=== PATIENT | female | born 1995 | race Native Hawaiian/Other Pacific Islander ===

== ENCOUNTER 2017-07-10 18:53 | Emergency (ER) | payer MEDICAID | END 2017-07-10 21:20 | disposition left against medical advice (07) | LOC: ED 18:53 | DX: J02.9 Acute pharyngitis, unspecified (principal); Z53.21 Procedure and treatment not carried out due to patient leaving prior to being seen by health care provider ==

== ENCOUNTER 2018-08-30 13:06 | Emergency (ER) | payer MEDICAID, OTHER ==
--- NOTE | 2018-08-30 13:48 | Emergency Department Report ---
Blank Doc - Documentation Documentation: This is a 23-year-old female that presents with left sided pelvic pain and raj sea vomiting. This initial assessment/diagnostic orders/clinical plan/treatment(s) is/are subject to change based on patient's health status, clinical progression and re- assessment by fellow clinical providers in the ED. Further treatment and workup at subsequent clinical providers discretion. Patient/guardians urged not to elope from the ED as their condition may be serious if not clinically assessed and managed. Initial orders include: 1- Patient sent to [facility] for further evaluation and treatment 2- labs 3- UA
[2018-08-30 14:09] LABS: Hematocrit 42.6 % (30.3-42.9); Hemoglobin 14.6 gm/dl (10.1-14.3); Mean Corpuscular HGB Conc 34 % (30-34); Mean Corpuscular Volume 89 fl (79-97); Platelet Count 271 K/mm3 (140-440); Red Blood Count 4.81 M/mm3 (3.65-5.03); Red Cell Distribution Width 12.6 % (13.2-15.2)
[2018-08-30 14:28] LABS: Alanine Aminotransferase 27 units/L (7-56); BUN/Creatinine Ratio 9; Bilirubin,Direct < 0.2 mg/dL (0-0.2); Blood Urea Nitrogen 7 mg/dL (7-17); Calcium 9.1 mg/dL (8.4-10.2); Hemolysis Index 10
[2018-08-30 15:38] LABS: Basophils % (Manual) 0 % (0.0-1.8); Eosinophils % (Manual) 0 % (0.0-4.3); Total Cells Counted 100
[2018-08-30 15:39] LABS: RBC Morphology Normal
[2018-08-30 15:40] LABS: Bacteria,Urine 2+ /HPF (Negative); Bilirubin,Urine NEG (Negative); Blood,Urine MOD (Negative); Color,Urine Amber (Yellow); Mucus,Urine 1+ /HPF
[2018-08-30 15:42] LABS: WBC,Urine > 182.0 /HPF (0.0-6.0)
[2018-08-30 15:44] LABS: HCG Qualitative,Urine Negative (Negative)
--- NOTE | 2018-08-30 16:06 | Emergency Department Report ---
ED Abdominal Pain HPI - General Chief Complaint: Abdominal Pain Stated Complaint: STOMACH PAIN/NAUSEA/FEVER Time Seen by Provider: 08/30/18 13:47 Source: patient Mode of arrival: Ambulatory Limitations: No Limitations - History of Present Illness Initial Comments: This is a 23-year-old after [place] female that presents with left-sided abdominal pain and nausea and vomiting for one week. Patient also complains of a headache. States she had a bowel movement yesterday that was hard green balls. Last menstrual period was 08/22/2018 and 0. She denies vaginal bleeding, vaginal discharge, recent travel, and unusual foods. MD Complaint: abdominal pain Onset/Timin -: week(s) Location: L flank Radiation: none Migration to: no migration Severity scale (0 -10): 7 Quality: cramping Consistency: intermittent Improves With: nothing Worsens With: nothing Associated Symptoms: nausea, vomiting, chills. denies: diarrhea, fever, dysuria, hematemesis, hematochezia, melena, hematuria, anorexia, syncope Treatments Prior to Arrival: NSAIDs - Related Data LMP Date: 08/22/18 Previous Rx's Medication Instructions Recorded Last Taken Type Nitrofurantoin [place]/M-Cryst 100 mg PO Q12HR #10 capsule 10/25/15 Unknown Rx [Macrobid CAP] traMADol [Ultram] 50 mg PO Q6HR PRN #20 tablet 10/25/15 Unknown Rx Ciprofloxacin HCl [Cipro] 500 mg PO BID #20 tablet 08/30/18 Unknown Rx Ibuprofen [Motrin 800 MG tab] 800 mg PO Q8HR PRN #20 tablet 08/30/18 Unknown Rx Ondansetron [Zofran Odt] 4 mg PO Q8HR PRN #12 tab.rapdis 08/30/18 Unknown Rx Tramadol HCl [Ultram] 50 mg PO Q6H PRN #12 tablet 08/30/18 Unknown Rx Allergies Allergy/AdvReac Type Severity Reaction Status Date / Time No Known Allergies Allergy Verified 10/25/15 03:59 ED Review of Systems ROS: Stated complaint: STOMACH PAIN/NAUSEA/FEVER Other details as noted in HPI Constitutional: chills, fever Respiratory: denies: cough, shortness of breath, wheezing Cardiovascular: denies: chest pain, palpitations Gastrointestinal: abdominal pain, nausea, vomiting. denies: diarrhea Genitourinary: denies: urgency, dysuria, discharge Musculoskeletal: denies: back pain, joint swelling, arthralgia Skin: denies: rash, lesions Neurological: denies: headache, weakness, paresthesias Psychiatric: denies: anxiety, depression ED Past Medical Hx - Past Medical History Additional medical history: chronic back pain - Surgical History Past Surgical History?: No - Social History Smoking Status: Current Every Day Smoker Substance Use Type: None - Medications Home Medications: Home Medications Medication Instructions Recorded Confirmed Last Taken Type Nitrofurantoin [place]/M-Cryst 100 mg PO Q12HR #10 capsule 10/25/15 Unknown Rx [Macrobid CAP] traMADol [Ultram] 50 mg PO Q6HR PRN #20 tablet 10/25/15 Unknown Rx Ciprofloxacin HCl [Cipro] 500 mg PO BID #20 tablet 08/30/18 Unknown Rx Ibuprofen [Motrin 800 MG tab] 800 mg PO Q8HR PRN #20 tablet 08/30/18 Unknown Rx Ondansetron [Zofran Odt] 4 mg PO Q8HR PRN #12 tab.rapdis 08/30/18 Unknown Rx Tramadol HCl [Ultram] 50 mg PO Q6H PRN #12 tablet 08/30/18 Unknown Rx ED Physical Exam - General Limitations: No Limitations General appearance: alert, in no apparent distress - Respiratory Respiratory exam: Present: normal lung sounds bilaterally. Absent: respiratory distress - Cardiovascular Cardiovascular Exam: Present: regular rate, normal rhythm. Absent: systolic murmur, diastolic murmur, rubs, gallop - GI/Abdominal GI/Abdominal exam: Present: soft, tenderness (suprapubic), normal bowel sounds. Absent: distended, guarding, rebound, rigid, organomegaly, mass, bruit, pulsatile mass - Back Exam Back exam: Present: full ROM, CVA tenderness (R), CVA tenderness (L). Absent: muscle spasm, paraspinal tenderness, vertebral tenderness, rash noted - Neurological Exam Neurological exam: Present: alert, oriented X3, normal gait - Psychiatric Psychiatric exam: Present: normal affect, normal mood - Skin Skin exam: Present: warm, dry, intact, normal color. Absent: rash ED Course Vital Signs 08/30/18 08/30/18 08/30/18 13:49 16:22 16:30 Temperature 100.1 F H Pulse Rate 110 H Respiratory 20 18 Rate Blood Pressure 124/78 113/66 O2 Sat by Pulse 99 100 Oximetry 08/30/18 16:45 Temperature Pulse Rate Respiratory Rate Blood Pressure 105/60 O2 Sat by Pulse 100 Oximetry ED Medical Decision Making - Lab Data Result diagrams: 08/30/18 13:57 08/30/18 13:57 Lab Results 08/30/18 08/30/18 08/30/18 Range/Units 13:57 13:57 14:15 WBC 15.6 H (4.5-11.0) K/mm3 RBC 4.81 (3.65-5.03) M/mm3 Hgb 14.6 H (10.1-14.3) gm/dl Hct 42.6 (30.3-42.9) % MCV 89 (79-97) fl MCH 30 (28-32) pg MCHC 34 (30-34) % RDW 12.6 L (13.2-15.2) % Plt Count 271 (140-440) K/mm3 Add Manual Diff Complete Total Counted 100 Seg Neuts % (Manual) 85.0 H (40.0-70.0) % Band Neutrophils % 0 % Lymphocytes % (Manual) 8.0 L (13.4-35.0) % Reactive Lymphs % (Man) 0 % Monocytes % (Manual) 7.0 (0.0-7.3) % Eosinophils % (Manual) 0 (0.0-4.3) % Basophils % (Manual) 0 (0.0-1.8) % Metamyelocytes % 0 % Myelocytes % 0 % Promyelocytes % 0 % Blast Cells % 0 % Nucleated RBC % Not Reportable Seg Neutrophils # Man 13.3 H (1.8-7.7) K/mm3 Band Neutrophils # 0.0 K/mm3 Lymphocytes # (Manual) 1.2 (1.2-5.4) K/mm3 Abs React Lymphs (Man) 0.0 K/mm3 Monocytes # (Manual) 1.1 H (0.0-0.8) K/mm3 Eosinophils # (Manual) 0.0 (0.0-0.4) K/mm3 Basophils # (Manual) 0.0 (0.0-0.1) K/mm3 Metamyelocytes # 0.0 K/mm3 Myelocytes # 0.0 K/mm3 Promyelocytes # 0.0 K/mm3 Blast Cells # 0.0 K/mm3 WBC Morphology Not Reportable Hypersegmented Neuts Not Reportable Hyposegmented Neuts Not Reportable Hypogranular Neuts Not Reportable Smudge Cells Not Reportable Toxic Granulation Not Reportable Toxic Vacuolation Not Reportable Dohle Bodies Not Reportable Pelger-Huet Anomaly Not Reportable Agustin Rods Not Reportable Platelet Estimate Not Reportable Clumped Platelets Not Reportable Plt Clumps, EDTA Not Reportable Large Platelets Not Reportable Giant Platelets Not Reportable Platelet Satelliting Not Reportable Plt Morphology Comment Not Reportable RBC Morphology Normal Dimorphic RBCs Not Reportable Polychromasia Not Reportable Hypochromasia Not Reportable Poikilocytosis Not Reportable Anisocytosis Not Reportable Microcytosis Not Reportable Macrocytosis Not Reportable Spherocytes Not Reportable Pappenheimer Bodies Not Reportable Sickle Cells Not Reportable Target Cells Not Reportable Tear Drop Cells Not Reportable Ovalocytes Not Reportable Helmet Cells Not Reportable [place] Bodies Not Reportable [place] Rings Not Reportable Carmen Cells Not Reportable Bite Cells Not Reportable Crenated Cell Not Reportable Elliptocytes Not Reportable Acanthocytes (Spur) Not Reportable Rouleaux Not Reportable Hemoglobin C Crystals Not Reportable Schistocytes Not Reportable Malaria parasites Not Reportable Antwan Bodies Not Reportable Hem Pathologist Commnt No Sodium 134 L (137-145) mmol/L Potassium 3.0 L (3.6-5.0) mmol/L Chloride 93.3 L (98-107) mmol/L Carbon Dioxide 27 (22-30) mmol/L Anion Gap 17 mmol/L BUN 7 (7-17) mg/dL Creatinine 0.8 (0.7-1.2) mg/dL Estimated GFR > 60 ml/min BUN/Creatinine Ratio 9 % Glucose 98 (65-100) mg/dL Calcium 9.1 (8.4-10.2) mg/dL Total Bilirubin 0.70 (0.1-1.2) mg/dL Direct Bilirubin < 0.2 (0-0.2) mg/dL AST 28 (5-40) units/L ALT 27 (7-56) units/L Alkaline Phosphatase 87 (35-129) units/L Total Protein 7.7 (6.3-8.2) g/dL Albumin 4.0 (3.9-5) g/dL Albumin/Globulin Ratio 1.1 % Lipase 15 (13-60) units/L Urine Color Ximena (Yellow) Urine Turbidity Cloudy (Clear) Urine pH 6.0 (5.0-7.0) Ur Specific [place] 1.017 (1.003-1.030) Urine Protein 30 mg/dl (Negative) mg/dL Urine Glucose (UA) Neg (Negative) mg/dL Urine Ketones 20 (Negative) mg/dL Urine Blood Mod (Negative) Urine Nitrite Pos (Negative) Urine Bilirubin Neg (Negative) Urine Urobilinogen 4.0 (<2.0) mg/dL Ur Leukocyte Esterase Lg (Negative) Urine WBC (Auto) > 182.0 H (0.0-6.0) /HPF Urine RBC (Auto) 20.0 (0.0-6.0) /HPF U Epithel Cells (Auto) 3.0 (0-13.0) /HPF Urine Bacteria (Auto) 2+ (Negative) /HPF Urine Mucus 1+ /HPF Urine HCG, Qual Negative (Negative) - Medical Decision Making Patient was examined by me. Vitals are normal and patient is in no acute distress. Obtained a CBC, CMP, urine hCG, and urinalysis. Leukocytosis and hypokalemia. IV site initiated. Given normal saline, Klor-Con, and morphine. Urinalysis positive for urinary tract infection which is suspected to be wesley lonephritis. Given Rocephin 1 g IV. Patient informed of results. Start cipro, zofran, tramadol, and ibuprofen. Plan discussed with patient to discharge home and treat outpatient. She agrees with ER plan. Patient discharged home in stable condition. Follow up with PCP in 2-3 days. Critical care attestation.: If time is entered above; I have spent that time in minutes in the direct care of this critically ill patient, excluding procedure time. ED Disposition Clinical Impression: Pyelonephritis, Nausea alone, Left flank pain Disposition: - TO HOME OR SELFCARE Is pt being admited?: No Does the pt Need Aspirin: No Condition: Stable Instructions: Abdominal Pain (ED), Acute Pyelonephritis (ED), Flank Pain (ED) Additional Instructions: Increase fluid intake to 1L to 2L daily. Complete full course of antibiotics as prescribed. Avoid drinking alcohol while taking antibiotics and for 24 hours after completion. Follow up with primary care provider in 2-3 days. Prescriptions: Ciprofloxacin HCl [Cipro] 500 mg PO BID #20 tablet Ibuprofen [Motrin 800 MG tab] 800 mg PO Q8HR PRN #20 tablet PRN Reason: Pain, Moderate (4-6) Tramadol HCl [Ultram] 50 mg PO Q6H PRN #12 tablet PRN Reason: Pain , Severe (7-10) Ondansetron [Zofran Odt] 4 mg PO Q8HR PRN #12 tab.rapdis PRN Reason: Nausea And Vomiting Referrals: ELOISA OGLESBY MD [Primary Care Provider] - 3-5 Days [facility] [Outside] - 3-5 Days [facility] [Outside] - 3-5 Days [facility] [Outside] - 3-5 Days Forms: Work/School Release Form(ED) Time of Disposition: 18:00
[2018-08-30] MEDS ORDERED: NACL 0.9% 1000 ML 1,000 ML IV ONE (16:07)
[2018-08-30] MEDS ORDERED: MORPHINE IV ONE (16:07)
[2018-08-30] MEDS ORDERED: K-DUR PO ONE (16:15)
[2018-08-30] MEDS ORDERED: ROCEPHIN/NS 1 GM/50 ML 1 GM/50 ML BAG IV ONE (16:15)
[2018-08-30 17:47] VITALS: BP 118/61
== END 2018-08-30 18:20 | disposition home or self-care (01) ==
LOC: ED 13:06
DX: N12 Tubulo-interstitial nephritis, not specified as acute or chronic (principal); G89.29 Other chronic pain; F17.200 Nicotine dependence, unspecified, uncomplicated
CPT/HCPCS: 36415; 80048; 80076; 81001; 81025; 83690; 85007; 85025; 96365; 96375; 99283; J0696; J2270; J7030

== ENCOUNTER 2018-10-26 06:41 | Emergency (ER) | payer OTHER ==
[2018-10-26 06:50] VITALS: BP 112/79
[2018-10-26] MEDS ORDERED: IBUPROFEN PO ONE (07:56)
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
== END 2018-10-26 08:04 | disposition home or self-care (01) ==
LOC: ED 06:41
DX: S16.1XXA Strain of muscle, fascia and tendon at neck level, initial encounter (principal); G89.29 Other chronic pain; M54.9 Dorsalgia, unspecified; F17.200 Nicotine dependence, unspecified, uncomplicated; V49.59XA Passenger injured in collision with other motor vehicles in traffic accident, initial encounter; Y93.89 Activity, other specified; Y92.410 Unspecified street and highway as the place of occurrence of the external cause; Y99.8 Other external cause status

== ENCOUNTER 2020-02-13 18:19 | Emergency (ER) | payer SELFPAY ==
[2020-02-13 18:25] VITALS: BP 117/65
[2020-02-13] MEDS ORDERED: BACITRACIN/POLYMYXIN B OINT 28.35 GM TP ONE (20:38)
--- NOTE | 2020-02-13 20:44 | Emergency Department Report ---
ED General Adult HPI - General Chief complaint: Upper Respiratory Infection Stated complaint: SOB/STITCHS RT HAND PAINFUL Time Seen by Provider: 02/13/20 19:36 Source: patient Mode of arrival: Ambulatory Limitations: No Limitations - History of Present Illness Initial comments: 24-year-old -[place] female patient presents with complaints of cough, congestion, and scratchy throat x5 days in needing suture removal today. Patient had sutures placed here in ED 02/03/2020. She states she took the Keflex that was prescribed for about 5 days. She denies any increase in pain however states the wound does remain painful with movement. She also denies any purulent drainage, numbness/tingling/weakness in her hand, fever/chills/sweats. Patient rates her pain as a 7/10 in severity states tramadol does help some. She denies any known sick contacts and states her upper respiratory symptoms have been improving since their onset. NyQuil does help some, however the cough keeps her up at night and her nose becomes very stuffed per patient. She states her throat only hurts with coughing. She denies any hemoptysis/productive cough, shortness of breath, chest pain, nausea/vomiting/diarrhea, abdominal pain, or sinus pain/pressure. - Related Data Previous Rx's Medication Instructions Recorded Last Taken Type Nitrofurantoin [place]/M-Cryst 100 mg PO Q12HR #10 capsule 10/25/15 Unknown Rx [Macrobid CAP] traMADoL [Ultram] 50 mg PO Q6HR PRN #20 tablet 10/25/15 Unknown Rx Ciprofloxacin HCl [Cipro] 500 mg PO BID #20 tablet 08/30/18 Unknown Rx Ibuprofen [Motrin 800 MG tab] 800 mg PO Q8HR PRN #20 tablet 08/30/18 Unknown Rx Ondansetron [Zofran Odt] 4 mg PO Q8HR PRN #12 tab.rapdis 08/30/18 Unknown Rx Tramadol HCl [Ultram] 50 mg PO Q6H PRN #12 tablet 08/30/18 Unknown Rx Ketorolac [Toradol] 10 mg PO Q6H PRN #15 tablet 10/26/18 Unknown Rx methOCARBAMOL [Robaxin] 750 mg PO Q8H PRN #21 tablet 10/26/18 Unknown Rx Chlorhexidine Mouthwash [Peridex] 15 ml MM BID #1 bottle 02/03/20 Unknown Rx cephALEXin [Keflex] 500 mg PO Q6HR #40 capsule 02/03/20 Unknown Rx traMADoL [Ultram] 50 mg PO Q6HR PRN #14 tablet 02/03/20 Unknown Rx Ibuprofen [Motrin 800 MG tab] 800 mg PO Q8HR PRN #21 tablet 02/13/20 Unknown Rx Levocetirizine Dihydrochloride 5 mg PO QHS PRN #15 tablet 02/13/20 Unknown Rx [Xyzal] guaiFENesin/DEXTROMETHORPHAN 1 each PO BID PRN #20 tab.er.12h 02/13/20 Unknown Rx [Mucinex Dm ER 1,200-60 mg Tab] traMADoL [Ultram 50 MG tab] 50 mg PO Q8H PRN #8 tablet 02/13/20 Unknown Rx Allergies Allergy/AdvReac Type Severity Reaction Status Date / Time No Known Allergies Allergy Verified 02/13/20 18:20 ED Review of Systems ROS: Stated complaint: SOB/STITCHS RT HAND PAINFUL Other details as noted in HPI Constitutional: denies: chills, diaphoresis, fever, malaise, weakness ENT: throat pain Respiratory: cough. denies: shortness of breath Cardiovascular: denies: chest pain Gastrointestinal: denies: abdominal pain, nausea, vomiting, diarrhea Skin: as per HPI. denies: rash, lesions, change in color Neurological: denies: numbness, paresthesias Hematological/Lymphatic: denies: swollen glands ED Past Medical Hx - Past Medical History Previous Medical History?: No Additional medical history: chronic back pain - Surgical History Past Surgical History?: No - Social History Smoking Status: Never Smoker Substance Use Type: None - Medications Home Medications: Home Medications Medication Instructions Recorded Confirmed Last Taken Type Nitrofurantoin [place]/M-Cryst 100 mg PO Q12HR #10 capsule 10/25/15 Unknown Rx [Macrobid CAP] traMADoL [Ultram] 50 mg PO Q6HR PRN #20 tablet 10/25/15 Unknown Rx Ciprofloxacin HCl [Cipro] 500 mg PO BID #20 tablet 08/30/18 Unknown Rx Ibuprofen [Motrin 800 MG tab] 800 mg PO Q8HR PRN #20 tablet 08/30/18 Unknown Rx Ondansetron [Zofran Odt] 4 mg PO Q8HR PRN #12 tab.rapdis 08/30/18 Unknown Rx Tramadol HCl [Ultram] 50 mg PO Q6H PRN #12 tablet 08/30/18 Unknown Rx Ketorolac [Toradol] 10 mg PO Q6H PRN #15 tablet 10/26/18 Unknown Rx methOCARBAMOL [Robaxin] 750 mg PO Q8H PRN #21 tablet 10/26/18 Unknown Rx Chlorhexidine Mouthwash [Peridex] 15 ml MM BID #1 bottle 02/03/20 Unknown Rx cephALEXin [Keflex] 500 mg PO Q6HR #40 capsule 02/03/20 Unknown Rx traMADoL [Ultram] 50 mg PO Q6HR PRN #14 tablet 02/03/20 Unknown Rx Ibuprofen [Motrin 800 MG tab] 800 mg PO Q8HR PRN #21 tablet 02/13/20 Unknown Rx Levocetirizine Dihydrochloride 5 mg PO QHS PRN #15 tablet 02/13/20 Unknown Rx [Xyzal] guaiFENesin/DEXTROMETHORPHAN 1 each PO BID PRN #20 tab.er.12h 02/13/20 Unknown Rx [Mucinex Dm ER 1,200-60 mg Tab] traMADoL [Ultram 50 MG tab] 50 mg PO Q8H PRN #8 tablet 02/13/20 Unknown Rx ED Physical Exam - General Limitations: No Limitations General appearance: alert, in no apparent distress - Head Head exam: Present: atraumatic, normocephalic - Eye Eye exam: Present: normal appearance. Absent: scleral icterus - ENT ENT exam: Present: mucous membranes moist, other (No tenderness to palpation noted over maxillary, ethmoid or facial sinuses) - Expanded ENT Exam Expanded Mouth exam: Present: tongue normal. Absent: drooling, trismus, muffled voice Throat exam: Positive: tonsillar erythema (Mild). Negative: tonsillomegaly, tonsillar exudate - Neck Neck exam: Present: normal inspection, full ROM. Absent: lymphadenopathy - Respiratory Respiratory exam: Present: normal lung sounds bilaterally. Absent: respiratory distress, wheezes - Cardiovascular Cardiovascular Exam: Present: regular rate, normal rhythm, normal heart sounds - GI/Abdominal GI/Abdominal exam: Present: soft. Absent: tenderness - Extremities Exam Extremities exam: Present: normal inspection - Back Exam Back exam: Present: normal inspection - Neurological Exam Neurological exam: Present: alert, oriented X3 - Psychiatric Psychiatric exam: Present: normal affect, normal mood - Skin Skin exam: Present: warm, dry, normal color, other (Healing laceration noted to palm of right hand without surrounding erythema, swelling, purulent drainage, or warmth. Laceration is tender to palpation. No joint tenderness or swelling noted. Patient has full range of motion of the right hand and fingers). Absent: rash ED Course Vital Signs 02/13/20 18:20 Temperature 98.1 F Pulse Rate 94 H Respiratory 18 Rate Blood Pressure 117/65 O2 Sat by Pulse 100 Oximetry - Procedure Description Procedures done: 9 simple sutures removed from right palm. No bleeding occurred. Patient tolerated procedure well. There is minimal wound dehiscence at the upper portion of the wound ED Medical Decision Making - Medical Decision Making 24-year-old -[place] female patient presents with complaints of cough, congestion, and scratchy throat x5 days in needing suture removal today. Patient had sutures placed here in ED 02/03/2020. She states she took the Keflex that was prescribed for about 5 days. She denies any increase in pain however states the wound does remain painful with movement. She also denies any purulent drainage, numbness/tingling/weakness in her hand, fever/chills/sweats. Patient rates her pain as a 7/10 in severity states tramadol does help some. She denies any known sick contacts and states her upper respiratory symptoms have been improving since their onset. NyQuil does help some, however the cough keeps her up at night and her nose becomes very stuffed per patient. She states her throat only hurts with coughing. She denies any hemoptysis/productive cough, shortness of breath, chest pain, nausea/vomiting/diarrhea, abdominal pain, or sinus pain/pressure. Sutures removed. No immediate complications noted. Patient tolerated procedure well. There is minimal wound dehiscence noted measuring about 0.5 to 1 cm without active bleeding or signs of infection. Recommend patient use OTC Neosporin 3 times daily x5 days and keep hand wrapped. Discussed wound care and signs and symptoms of infection in detail with patient, she verbalized understanding. Lungs are clear to auscultation bilaterally. Patient states her symptoms have been improving since their onset. Will treat for viral URI. Recommend follow-up with PCP. Strict return precautions were discussed in great detail with patient who verbalized understanding. Patient also informed to get tested for COVID-19 in an outpatient facility and to self quarantine until results are back. Her vitals are normal, she is well-appearing, and patient stable for discharge home. Critical care attestation.: If time is entered above; I have spent that time in minutes in the direct care of this critically ill patient, excluding procedure time. ED Disposition Clinical Impression: Encounter for removal of sutures, URI with cough and congestion Disposition: PAT REG,NO TRIAGE Is pt being admited?: No Condition: Stable Instructions: Laceration (ED), Suture Removal (ED), Upper Respiratory Infection (ED) Prescriptions: Levocetirizine Dihydrochloride [Xyzal] 5 mg PO QHS PRN #15 tablet PRN Reason: Congestion Ibuprofen [Motrin 800 MG tab] 800 mg PO Q8HR PRN #21 tablet PRN Reason: Pain, Moderate (4-6) guaiFENesin/DEXTROMETHORPHAN [Mucinex Dm ER 1,200-60 mg Tab] 1 each PO BID PRN #20 tab.er.12h PRN Reason: cough/chest congestion traMADoL [Ultram 50 MG tab] 50 mg PO Q8H PRN #8 tablet PRN Reason: Pain , Severe (7-10) Referrals: [facility],MD [Primary Care Provider] - 3-5 Days
[2020-02-13] MEDS ORDERED: NEOMY 3.5 MG/BACIT 400 UNITS/POLY B 5000 UNITS/GM OINT PACKET TP ONE ×2 (20:56)
== END 2020-02-13 21:05 | disposition home or self-care (01) ==
LOC: ED 18:19
DX: J06.9 Acute upper respiratory infection, unspecified (principal); Z48.02 Encounter for removal of sutures; Z79.899 Other long term (current) drug therapy
CPT/HCPCS: 99283; A6250

== ENCOUNTER 2020-07-09 11:54 | Emergency (ER) | payer OTHER ==
[2020-07-09] MEDS ORDERED: IBUPROFEN 600 MG TAB PO ONE (12:13)
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
== END 2020-07-09 13:50 | disposition home or self-care (01) ==
LOC: ED 11:54
DX: S99.922A Unspecified injury of left foot, initial encounter (principal); F17.200 Nicotine dependence, unspecified, uncomplicated; Z79.1 Long term (current) use of non-steroidal anti-inflammatories (NSAID); Z79.899 Other long term (current) drug therapy; X58.XXXA Exposure to other specified factors, initial encounter; Y93.89 Activity, other specified; Y92.89 Other specified places as the place of occurrence of the external cause; Y99.8 Other external cause status